=== PATIENT | female | born 1995 | race Caucasian/White ===

== ENCOUNTER 2017-04-16 17:01 | Emergency (ER) | payer OTHER, SELFPAY ==
[2017-04-16 17:03] VITALS: BP 141/69; PULSE 91; RESP 16; TEMP 36.6; O2SAT 99; BMI 23.1
--- NOTE | 2017-04-16 17:28 | ED.VISSUMM ---
- ER Visit Summary Date of Service: 04/16/17 Chief Complaint: Nausea and vomiting History of Present Illness: The patient is a 21 F who presents for nausea and vomiting since 4 AM this morning. Patient states she woke up with sudden onset of vomiting and has vomited multiple times today. Any time she even takes a sip of water she vomits. She has abnormal stools but no lexy diarrhea. She has some abdominal discomfort but no cramping or actual pain. Patient denies fever, cough, congestion, chest pain, shortness of breath. She has multiple friends with similar symptoms after they all conjugated for a [employer] party Saturday. Denies any medical history. Last menstrual period was 3 weeks ago. Is not concerned for . Physical Examination: Vital signs: afebrile, hemodynamically stable, no hypoxia on room air General: well nourished, well developed, in no distress Skin: warm, dry, no rash, no pallor HEENT: normocephalic and atraumatic; PERRL, EOMI, dry mucous membranes Cardiovascular: regular rate and rhythm without murmurs, no peripheral edema, 2+ pulses all distal extremities Respiratory: No increased work of breathing, lungs are clear to auscultation bilaterally, no rales, rhonchi or wheezing Abdominal: Abdomen is soft, nontender with normoactive bowel sounds, no guarding or rebound, no masses MSK: Moves all extremities, no deformities, normal strength Neuro: Awake and alert, oriented ?4. No facial droop, sensation and motor function intact and symmetric Test Results: [] Emergency Department Course and Treatment: Patient presents with symptoms that many of her friends have, which is concerning for a likely infectious gastroenteritis. No testing indicated as patient's exam is benign. Because of her dry mucous membranes she was given IV fluids. She was given Zofran for nausea. She will be discharged with a prescription for Zofran and encouraged to drink plenty of fluids to stay hydrated. Return if any worsening of her condition. Patient will be discharged home after hydration. Treatment Plan: [] Disposition: [] Impression: Acute Gastroenteritis This note was generated with [employer] dictation software. It may contain incorrect words, spelling, and punctuation that were not noted in review of the chart prior to signing ED Disposition - Plan for ED Patient: Disposition: Home or Assisted Living Chief Complaint: Nausea/Vomiting Instructions: ED Food Poison Or Gastroenteritis Referrals: Abdirizak Canales MD [Primary Care Provider] - 3-5 Days if not improving Additional Instructions: You may use the Zofran to help with nausea. Please drink plenty of fluids to stay hydrated. Gatorade or Powerade are good choices until you can resume your normal daily intake of food and liquids. If you have any worsening of your condition or any other concerns, please return to the emergency department immediately for another evaluation.
[2017-04-16] MEDS: 0.9% Normal Saline 1,000 ML 999 ML IV (17:46)
[2017-04-16] MEDS: Ondansetron 4 MG/2 ML Vial IV (17:47)
--- NOTE | 2017-04-16 18:18 | ED.DEP ---
ED Disposition - Plan for ED Patient: Disposition: Home or Assisted Living Chief Complaint: Nausea/Vomiting Instructions: ED Food Poison Or Gastroenteritis Prescriptions: Ondansetron [Zofran Odt] 4 mg PO Q8H PRN PRN #15 tab PRN Reason: Nausea Referrals: Abdirizak Canales MD [Primary Care Provider] - 3-5 Days if not improving Additional Instructions: You may use the Zofran to help with nausea. Please drink plenty of fluids to stay hydrated. Gatorade or Powerade are good choices until you can resume your normal daily intake of food and liquids. If you have any worsening of your condition or any other concerns, please return to the emergency department immediately for another evaluation.
[2017-04-16 19:16] VITALS: BP 123/74; PULSE 68; RESP 16; O2SAT 100
== END 2017-04-16 19:17 | disposition home or self-care (01) ==
PROVIDERS: Emergency Provider Emergency Medicine; Family Provider Pediatrics; PCP Pediatrics
DX: K52.9 Noninfective gastroenteritis and colitis, unspecified (principal)
CPT/HCPCS: 96361; 96374; 99283; J7030; A4216; J2405

== ENCOUNTER → 2017-05-02 17:13 | Outpatient (CLI) | payer OTHER, SELFPAY ==
[2017-05-07 15:58] LABS: HPV Reflexed? NOT INDICATED
== END ==
PROVIDERS: Visit Provider Obstetrics & Gynecology
DX: Z12.4 Encounter for screening for malignant neoplasm of cervix (principal)
CPT/HCPCS: 88175; G0145

== ENCOUNTER 2018-10-30 05:08 | Emergency (ER) | payer OTHER, SELFPAY ==
[2018-10-30 05:08] VITALS: BMI 23.1
[2018-10-30 05:09] VITALS: BP 112/69; PULSE 63; RESP 18; TEMP 36.6; O2SAT 97; BMI 193.9
--- NOTE | 2018-10-30 05:34 | ED.DCSUM_ITS ---
- ER Visit Summary Date of Service: 10/30/18 Chief Complaint: Abdominal pain History of Present Illness: The patient is a 23 F who states that over 400 she had suprapubic lower abdominal pain describes as a severe menstrual cramp. She states that this was at a character for her. She called the nurse line that she was feeling that she might have some numbness in her legs they told her to come to emergency. Then she had a bowel movement followed by diarrhea and had an episode of vomiting and decided she would come. Now she notes she is asymptomatic. No nausea no abdominal pains no flank pain. She denies any rashes any fevers. No recent upper respiratory symptoms. No cough. Last menstrual period was at the end of September. She denies risk of . Father has had kidney stones. Physical Examination: Afebrile vital signs are stable Gen: Well-nourished well-developed Head: Normocephalic atraumatic Eyes: Perrl EOMI ENT: TMs clear no rhinorrhea moist mucous membranes Neck: Supple no lymphadenopathy no JVD nontender CVS: Regular rate rhythm no murmurs normal S1-S2 Respiratory: No distress clear to auscultation bilaterally chest nontender Abdomen: Soft nontender nondistended normal bowel sounds no masses Back: Nontender Extremity: Nontender no edema Skin: Normal color no rash Neuro: alert orientated ?3 CN II-XII intact normal strength sensation Psych: Normal affect normal mood Test Results: Urine/urine test was ordered. These were essentially negative Emergency Department Course and Treatment: While emergency department patient started her menstrual cycle. Patient will be discharged home. Impression: 1. Menstrual cramps This note was generated with [employer] dictation software. It may contain incorrect words, spelling, and punctuation that were not noted in review of the chart prior to signing ED Disposition - Plan for ED Patient: Disposition: Home or Assisted Living Instructions: Dysmenorrhea Referrals: Samira Hammer MD [STAFF PHYSICIAN] - As Needed
[2018-10-30 05:51] LABS: White Blood Cells 0 SEEN /hpf (0-5)
[2018-10-30 06:04] LABS: Color, Urine Yellow (Yellow); Glucose, Dipstick Normal (Normal); Ketone-Dipstick 5 mg/dl (Negative); Leukocyte Esterase-Dipstick Negative /ul (Negative); Nitrite-Dipstick Negative (Negative); Occult Blood-Urine 150 /ul (Negative); Protein-Dipstick Negative (Negative); Specific Gravity, Urine 1.025 (1.002-1.030); Urine Bilirubin Dipstick Negative (Negative); Urine Clarity Sl. Cloudy (Clear); Urine Urobilinogen Normal (Normal)
[2018-10-30 06:06] LABS: Internal QC Validated? YES +Cl - CLEAR BKGD; Pregnancy, Urine Negative Negative
[2018-10-30 06:09] LABS: Bacteria RARE /hpf (None Seen); Mucous, Urine 1+ /hpf (<or=2+); Squamous Epithelial Cells - UA 0-5 SEEN /hpf (5-10)
[2018-10-30 06:10] LABS: Red Blood Cells-Urine 0-5 SEEN /hpf (0-5)
[2018-10-30 06:25] VITALS: PULSE 76; RESP 18; O2SAT 100
--- NOTE | 2018-10-30 06:26 | ED.RN ---
THIS NURSE REVIEWED D/C INSTRUCTIONS WITH PT. PT VERBALIZED UNDERSTANDING OF INSTRUCTIONS. PT DENIES FURTHER NEEDS OR QUESTIONS AT THIS TIME
== END 2018-10-30 06:27 | disposition home or self-care (01) ==
PROVIDERS: Emergency Provider Emergency Medicine
DX: N94.6 Dysmenorrhea, unspecified (principal)
CPT/HCPCS: 81001; 81025; 99282

== ENCOUNTER → 2020-09-22 | Outpatient (CLI) | payer OTHER, SELFPAY ==
[2020-09-22 10:00] VITALS: BMI 22.0
[2020-09-27 14:41] LABS: HPV Reflexed? NOT INDICATED
== END | disposition home or self-care (01) ==
LOC: LABSPEC 11:48
PROVIDERS: PCP Internal Medicine; Referring Provider Obstetrics & Gynecology; Visit Provider Obstetrics & Gynecology
DX: Z12.4 Encounter for screening for malignant neoplasm of cervix (principal)
CPT/HCPCS: 88175; G0145

== ENCOUNTER → 2023-09-30 | Outpatient (CLI) | payer OTHER, SELFPAY ==
[2023-10-05 16:42] LABS: HPV Reflexed? NOT INDICATED
== END | disposition home or self-care (01) ==
PROVIDERS: PCP Internal Medicine; Referring Provider Obstetrics & Gynecology; Visit Provider Obstetrics & Gynecology
DX: Z12.4 Encounter for screening for malignant neoplasm of cervix (principal)
CPT/HCPCS: 88175; G0145

== ENCOUNTER → 2023-12-31 | Outpatient (CLI) | payer OTHER, SELFPAY ==
--- NOTE | 2023-12-31 08:27 | NEURO ---
NCS and/or EMG Patient Report Ordering Doctor: Steven Neff DATE OF SERVICE: 12/31/23 Clinical Summary: 28 year old female patient with symptoms of numbness in both hands but more pronounced on the right side. Nerve Conduction Studies Summary: There was greater than a 10 m/s drop in the right ulnar motor conduction velocity across the elbow. Otherwise, nerve conduction studies of the bilateral upper extremities were normal. Needle Examination Summary: Needle examination of select muscles of the bilateral upper extremities was normal. Impression: There is electrodiagnostic evidence of the following - 1) Mild, right ulnar mononeuropathy at the elbow, with demyelinating features There is no electrodiagnostic evidence of a right/left median mononeuropathy at the wrist (carpal tunnel syndrome), left ulnar mononeuropathy, or left/right cervical radiculopathy. Multi Select Codes Neurology Neurology Interp Codes: 17266-07 Musc test done w/n test comp (interp) (2) and 24466-89 Nrv cndj test 13/> studies (interp)
== END | disposition home or self-care (01) ==
LOC: PSN 07:11
PROVIDERS: PCP Internal Medicine; Referring Provider Physician Assistant Surgical; Visit Provider Physician Assistant Surgical
DX: R20.2 Paresthesia of skin (principal)
CPT/HCPCS: 95886; 95913

== ENCOUNTER 2024-04-21 07:00 | Outpatient (RCR) | payer OTHER, SELFPAY ==
--- NOTE | 2024-04-07 08:30 | HP.PTEVAL ---
Patient's Visit Information Visit Information Visit Information: VIANEY SCHROEDER is a 28 year old F referred to Physical Therapy by CIRA RODRIGUEZ with a diagnosis of TMD B. Date of Evaluation: 04/07/24 Physical Therapist: YULIET Glover Visit Plan Frequency: 1-2x /Week Duration: 2 Months Plan: 1-2X/ week as needed for cervical and postural retraining, Jaw posture, MT and US if needed to Pterygoids and Temporalis muscles with HEP Subjective Subjective: Pt reports that she has had TMJ for years. She got a mouth guard back then. Stopped wearing it when she got Invisalign and stopped that in May of last year. She started Prozac and noticed more jaw pain since starting that. Now she has more grinding. She had a QIU and knew she was not dehydrated. She has some soreness in her cheek and on the upper part of her head. She notices that during the day she has her jaw clenched. She has been using a bite guard the last week and not sure if it is much better. She reports that she gets IQU infrequent. She sleeps with 1 pillow under her head and she sleeps well and sleeps a lot. She will massage her upper head and jaw as needed. She notices that when she eats veggies she will be better. Pain Jaw pain: Pain Intensity (Out of 10): 0 Objective Objective: mouth opening 53 mm Lateral deviation R 9.5mm Lateral deviation L 10mm Tender to palpation R Temporalis and R lateral and medial Pterygoid Good posture. Tight upper cervical and trap musculature. Instructed pt in [facility] 6 by 6 for HEP and did them in the clinic Goals Goal 1:: I HEP for posture, self MT Goal Time Frame: 4-6 Weeks Goal 2:: Decrease in overall TMD symptoms Goal Time Frame: 4-6 Weeks Goal 3:: Both TMJ move together (R side was more tight than the L) Goal Time Frame: 4-6 Weeks Rehabilitation Potential Rehabilitation Potential: Good Anticipated Interventions Patient/Client Instruction: Educate patient on: Plan of Care For the Purpose of:: To decrease pain, To decrease swelling/inflammation, To increase ROM, To improve nutrient delivery to tissue, To increase oxygenation perfusion, To improve muscle performance and motor function, To increase tolerance to activity/condition/position, To improve health of tissue, To decrease soft tissue restriction and To increase flexibility/ROM Therapeutic Exercise to Include: Strength training, Postural training, Flexibilty training, Neuromotor development, Passive ROM, Active ROM and Scapular Strength/Stabilization For the Purpose of:: To decrease pain, To decrease swelling/inflammation, To improve nutrient delivery to tissue, To improve muscle performance and motor function, To improve health of tissue, To decrease soft tissue restriction and To increase flexibility/ROM Manual Therapy Techniques to Include: Passive ROM and Soft tissue mobilization For the Purpose of:: To decrease pain, To increase ROM, To improve nutrient delivery to tissue, To improve muscle performance and motor function, To increase tolerance to activity/condition/position, To improve health of tissue, To decrease soft tissue restriction and To increase flexibility/ROM Cryotherapy (ice pack, ice massage): Yes Thermo therapy (hot pack): Yes Ultrasound (thermal/non thermal): Yes For the Purpose of:: To decrease pain, To decrease swelling/inflammation, To increase ROM and To improve nutrient delivery to tissue Text: Thank you for the opportunity to evaluate your patient. For Medicare and Medicare HMO plans, please review the plan of care and approve it. It will need to be FAXED BACK to us at [phone] for Medicare purposes. For Medicare only, by signing this I certify the plan of care. Please let me know if there are questions or concerns regarding this plan of care. Physician Signature: Date:
--- NOTE | 2024-08-31 08:46 | HP.PTDCNRP_ITS ---
Patient Information Patient Information: VIANEY SCHROEDER was seen in my office for initial evaluation on 04/07/24. The following Plan of Care was established for this patient: POC Established Initial Frequency: 1-2x /Week Initial Duration: 2 Months Anticipated Interventions Patient/Client Instruction: Educate patient on: Plan of Care For the Purpose of:: To decrease pain, To decrease swelling/inflammation, To increase ROM, To improve nutrient delivery to tissue, To increase oxygenation perfusion, To improve muscle performance and motor function, To increase tolera nce to activity/condition/position, To improve health of tissue, To decrease soft tissue restriction and To increase flexibility/ROM Therapeutic Exercise to Include: Strength training, Postural training, Flexibilty training, Neuromotor development, Passive ROM, Active ROM and Scapular Strength/Stabilization For the Purpose of:: To decrease pain, To decrease swelling/inflammation, To improve nutrient delivery to tissue, To improve muscle performance and motor function, To improve health of tissue, To decrease soft tissue restriction and To increase flexibility/ROM Manual Therapy Techniques to Include: Passive ROM and Soft tissue mobilization For the Purpose of:: To decrease pain, To increase ROM, To improve nutrient delivery to tissue, To improve muscle performance and motor function, To increase tolerance to activity/condition/position, To improve health of tissue, To decrease soft tissue restriction and To increase flexibility/ROM Cryotherapy (ice pack, ice massage): Yes Thermo therapy (hot pack): Yes Ultrasound (thermal/non thermal): Yes For the Purpose of:: To decrease pain, To decrease swelling/inflammation, To increase ROM and To improve nutrient delivery to tissue Last Seen Last Seen: This patient was last seen in our office 04/21/24. Pertinent comments regarding their Physical therapy will appear below: [facility] At this point I will be discontinuing this patient from physical therapy. I would be happy to see this patient again in the future if found appropriate by the physician. Thank you! Sierra Cain, MPT
== END 2024-04-21 19:00 | disposition home or self-care (01) ==
LOC: PT 07:00
PROVIDERS: PCP Internal Medicine
DX: M79.10 Myalgia, unspecified site (principal)
CPT/HCPCS: 97110; 97162

== ENCOUNTER → 2024-10-16 | Outpatient (CLI) | payer OTHER, SELFPAY ==
--- NOTE | 2024-10-16 09:34 | US_ITS ---
EXAM: DIAG MAMM W/CAD, BILAT; BILAT BRST JOVI STAND ALONE; BREAST LIMITED UNILATERAL 10/16/2024 CLINICAL HISTORY: F, Age 29 y/o , LEFT BREAST PAIN; PAIN TECHNIQUE: DIAG MAMM W/CAD, BILAT; BILAT BRST JOVI STAND ALONE; BREAST LIMITED UNILATERAL. COMPARISON: Baseline examination, no priors. FINDINGS: MAMMOGRAM: TISSUE DENSITY: The breasts are extremely dense, which lowers the sensitivity of mammography. The mammogram demonstrates that the patient has dense breasts. Supplemental screening with whole breast ultrasound or MRI may be considered for further evaluation. Left breast: There is a skin marker indicating the area of pain in the left breast. Underlying the skin marker no suspicious mammographic findings. Otherwise, there are no suspicious findings in the left breast. Right breast: There are no suspicious masses grouped calcifications or architectural distortions in the right breast. ULTRASOUND: Ultrasound performed of the area of patient's reported pain in the upper-outer quadrant of the left breast demonstrates no suspicious sonographic findings. There are no solid masses or abnormal cystic elements. US/Breast Limited Unilateral IMPRESSION: 1. There are no suspicious mammographic or sonographic findings in the area of patient's reported pain in the left breast. Clinical management is recommended for the pain 2. There is no evidence of malignancy in either breast. OVERALL FINAL ASSESSMENT BI-RADS 1: NEGATIVE RECOMMENDATION: Routine annual follow-up in 1 Year, beginning at the age of 40. A letter with findings and recommendations will be mailed to the patient. Reading Location: [id number]
--- NOTE | 2024-10-16 09:38 | BI_ITS ---
EXAM: DIAG MAMM W/CAD, BILAT; BILAT BRST JOVI STAND ALONE; BREAST LIMITED UNILATERAL 10/16/2024 CLINICAL HISTORY: F, Age 29 y/o , LEFT BREAST PAIN; PAIN TECHNIQUE: DIAG MAMM W/CAD, BILAT; BILAT BRST JOVI STAND ALONE; BREAST LIMITED UNILATERAL. COMPARISON: Baseline examination, no priors. FINDINGS: MAMMOGRAM: TISSUE DENSITY: The breasts are extremely dense, which lowers the sensitivity of mammography. The mammogram demonstrates that the patient has dense breasts. Supplemental screening with whole breast ultrasound or MRI may be considered for further evaluation. Left breast: There is a skin marker indicating the area of pain in the left breast. Underlying the skin marker no suspicious mammographic findings. Otherwise, there are no suspicious findings in the left breast. Right breast: There are no suspicious masses grouped calcifications or architectural distortions in the right breast. ULTRASOUND: Ultrasound performed of the area of patient's reported pain in the upper-outer quadrant of the left breast demonstrates no suspicious sonographic findings. There are no solid masses or abnormal cystic elements. BI/Bilat Brst Jovi Stand Alone IMPRESSION: 1. There are no suspicious mammographic or sonographic findings in the area of patient's reported pain in the left breast. Clinical management is recommended for the pain 2. There is no evidence of malignancy in either breast. OVERALL FINAL ASSESSMENT BI-RADS 1: NEGATIVE RECOMMENDATION: Routine annual follow-up in 1 Year, beginning at the age of 40. A letter with findings and recommendations will be mailed to the patient. Reading Location: [id number]
== END | disposition home or self-care (01) ==
LOC: OPBI 09:32
PROVIDERS: PCP Internal Medicine; Referring Provider Advanced Practice Midwife; Visit Provider Advanced Practice Midwife
DX: N64.4 Mastodynia (principal)
CPT/HCPCS: 76642; 77062; 77066; G0279